=== PATIENT | female | born 1985 | race Caucasian/White ===

== ENCOUNTER 2021-03-05 23:35 | Emergency (ER) | payer OTHER, SELFPAY ==
[2021-03-05 23:57] VITALS: BP 120/103; PULSE 92; RESP 18; TEMP 36.8; O2SAT 98
--- NOTE | 2021-03-05 23:57 | ED.WOUNDLAC ---
HPI - Wound/Laceration General Chief Complaint: Wound/Laceration Stated Complaint: pointer finger (laceration) Time Seen by Provider: 03/05/21 23:57 Source: patient Mode of arrival: ambulatory Limitations: no limitations History of Present Illness HPI narrative: 35-year-old female presents to the ER with a J-shaped laceration of the left index finger on the palmar aspect. The laceration is a full-thickness laceration measuring 3 cm. She caught her finger on the edge of metal 10. Onset (ago): minute(s) ( 30 minutes) Location: other ( left 4th finger) Extremity Location: Left: hand Place: home Patient tetanus UTD: No Context: accidental Associated symptoms: none and pain Related Data Allergies Allergy/AdvReac Type Severity Reaction Status Date / Time No Known Allergies Allergy Unverified 05/20/13 15:29 Review of Systems Review of Systems: All systems reviewed & are unremarkable except as noted in HPI and below Constitutional: Constitutional: Reports as per HPI and Reports no additional constitutional complaints Eyes: Eyes: Reports as per HPI and Reports no additional eye complaints ENT: Reports system reviewed and no additional complaints, except as documented Cardiovascular: Cardiovascular: Reports as per HPI and Reports no additional cardiovascular complaints Respiratory: Respiratory: Reports as per HPI and Reports no additional respiratory complaints Gastrointestinal: Gastrointestinal: Reports as per HPI and Reports no additional gastrointestinal complaints Genitourinary: Genitourinary: Reports no additional female genitourinary complaints Musculoskeletal: Musculoskeletal: Reports no additional musculoskeletal complaints Integumentary/Breasts: Comments: left J shaped finger laceration Neurologic: Reports system reviewed and no additional complaints, except as documented and Reports other ( distal neurovascular bundle is intact.) Psychiatric: Psychiatric: Reports no additional psychiatric complaints Endocrine: Endocrine: Reports no additional endocrine complaints Hematologic/Lymphatic: Hematologic/Lymphatic: Reports no additional hematologic/lymphatic complaints Allergic/Immunologic: Allergic/Immunologic: Reports no additional allergic/immunologic complaints Exam Const: General: cooperative and healthy appearing HENMT: Head: normal to inspection Ears: hearing grossly normal bilaterally General nose exam: Normal external nose present Face and sinus: normal facial exam Mouth: Yes Normal oral and palatal mucosa present Throat: posterior oropharynx normal Eyes: General: appearance normal, both eyes and all related structures Neck: Neck: normal visual inspection Chest: Chest palpation & inspection: normal inspection of the chest Resp: Effort & Inspection: normal respiratory effort Auscultation: clear to auscultation bilaterally Cardio: Rate: regular rate Rhythm: regular rhythm Heart sounds: S1 normal heart sound present and S2 normal heart sound present GI: Inspection: normal to inspection Back/Spine/Pelvis: Back: no CVA tenderness Skin: Trauma: no lacerations or abrasions ( Left index finger distal phalanx/ Palmar aspect -3 cm lac) and other ( Profuse bleeding.) Neuro: General: oriented to person, oriented to place, oriented to time and patient oriented x3 Extrem: General: normal to inspection Left upper extremity: normal to inspection ( Left index finger laceration) Psych: Appearance: grossly normal Mental Status: mental status grossly normal Course Course Emergency Course: patient received tetanus and Rocephin injection Vital Signs Vital signs: Vital Signs Temperature 36.8 C 03/05/21 23:57 Pulse Rate 92 03/05/21 23:57 Respiratory Rate 18 03/05/21 23:57 Blood Pressure 120/103 H 03/05/21 23:57 Pulse Oximetry 98 03/05/21 23:57 Temperature 36.8 C 03/05/21 23:57 Pulse Rate 92 03/05/21 23:57 Respiratory Rate 18 03/05/21 23:57 Blood Pressure 120/10
--- NOTE | 2021-03-06 00:13 | PC.NURSE ---
Pt set up for suturing ERMD in at this time to suture.
--- NOTE | 2021-03-06 00:20 | PC.NURSE ---
23:45 Pt presents to ER with a 3 cm Flap Like laceration to the distal end of lt hand index finger.
[2021-03-06] MEDS: LIDOCAINE HCL 1% LOCAL INJ 20 ML VIAL (00:25)
[2021-03-06] MEDS: TETANUS,DIPHTHERIA,AC PERTUSSIS ADULT 0.5 ML (ADACEL) (01:14)
[2021-03-06 01:16] VITALS: BP 129/97; PULSE 97; RESP 20; TEMP 36.6; O2SAT 100
[2021-03-06] MEDS: NEOMYCIN/POLYMYXIN/BACITRACIN OINTMENT PACKET 1 PACKET (02:07)
[2021-03-06] MEDS: cefTRIAXone 1 GM VIAL IM (02:07)
--- NOTE | 2021-03-06 02:34 | PC.NURSE ---
0130; Pt tolerated Im Rocephin well. o S or S of adverse affect. 2X2 and cling dressing applied to Left hand index finger. bleeding completely controlled.
== END 2021-03-06 01:36 | disposition home or self-care (01) ==
PROVIDERS: Emergency Provider Internal Medicine Critical Care Medicine; PCP Internal Medicine
DX: S61.211A Laceration without foreign body of left index finger without damage to nail, initial encounter (principal); W45.8XXA Other foreign body or object entering through skin, initial encounter
CPT/HCPCS: 12002; 90471; 90715; 96372; 99283; J0696

== ENCOUNTER 2023-07-09 21:01 | Emergency (ER) | payer OTHER, SELFPAY ==
--- NOTE | ~2023-07-09 | XR_ITS ---
XR foot RT min 3V, XR ankle RT min 3V 07/09/2023 21:21 Indication: Right foot and ankle pain Procedure: 3 views right foot and 3 views right ankle Comparison: No prior studies for comparison. Findings: There is a mildly displaced comminuted fracture proximal aspect of the fifth metatarsal. No other fracture. Mild soft tissue swelling lateral to the fracture site. Ankle mortise intact. [place] nc joint intact. Impression: 1: Mildly displaced comminuted fracture proximal aspect of the right fifth metatarsal with intra-stalin cular extension. Reviewed, dictated and finalized at location A. Impression: 1: Mildly displaced comminuted fracture proximal aspect of the right fifth meta tarsal with intra-articular extension. Impression: 1: Mildly displaced comminuted fracture proximal aspect of the right fifth meta tarsal with intra-articular extension.
[2023-07-09 21:06] VITALS: BP 131/91; PULSE 108; RESP 18; TEMP 36.7; O2SAT 100
--- NOTE | 2023-07-09 21:08 | ED.LOWEXIN ---
HPI - Extremity Injury (Lower) General Chief Complaint: Extremity Injury, Upper Stated Complaint: R Foot Pain Time Seen by Provider: 07/09/23 21:04 Source: patient Mode of arrival: ambulatory Limitations: no limitations History of Present Illness HPI Narrative: this is a 38-year-old female that was working at home and slipped off her run on a ladder and twisted her right foot and ankle causing pain swelling and bruising no other injuries as a brisk pedal pulse with mild numbness secondary to inflammation. complaint: ankle injury and foot injury Onset (ago): hour(s) Type of Injury: inversion Place: home Severity: moderate Severity scale (1-10): 7 Relieving factors: NSAID Exacerbating factors: weight bearing and movement Context: other Related Data Allergies Allergy/AdvReac Type Severity Reaction Status Date / Time No Known Allergies Allergy Verified 07/09/23 21:04 Review of Systems Review of Systems: All systems reviewed & are unremarkable except as noted in HPI and below PMFSH Past Medical History Medical History Patient denies medical problems Exam Const: General: healthy appearing Nutritional Appearance: well nourished Orientation/consciousness: patient oriented x3 Limitations: no limitations Resp: Effort & Inspection: normal respiratory effort Auscultation: clear to auscultation bilaterally Cardio: Rate: regular rate Rhythm: regular rhythm GI: GI Palp: Yes Soft to palpation Auscultation: normal bowel sounds Extrem: Other: tender right foot and ankle to palpation and movement with bruising and some swelling. Course Course Emergency Course: Patient received a dose of 60mg IM Toradol and x-ray of the foot ankle performed and reviewed Shows a fracture of the right 5th metatarsal. Vital Signs Vital signs: Vital Signs Temperature 36.7 C 07/09/23 21:06 Pulse Rate 108 H 07/09/23 21:06 Respiratory Rate 18 07/09/23 21:06 Blood Pressure 131/91 H 07/09/23 21:06 Pulse Oximetry 100 07/09/23 21:06 Oxygen Delivery Room Air 07/09/23 21:06 Temperature 36.7 C 07/09/23 21:06 Pulse Rate 108 H 07/09/23 21:06 Respiratory Rate 18 07/09/23 21:06 Blood Pressure 131/91 H 07/09/23 21:06 Pulse Oximetry 100 07/09/23 21:06 Oxygen Delivery Room Air 07/09/23 21:06 Critical Care Time Critical Care Time Critical Care Time: No Discharge Plan Discharge Clinical Impression: Foot fracture, right Qualifiers: Encounter type: initial encounter Fracture type: closed Qualified Code(s): S92.901A - Unspecified fracture of right foot, initial encounter for closed fracture Patient Disposition: Home, Self-Care Condition: Stable Instructions: Antibiotic Form, Foot Fracture in Adults (ED) Additional Instructions: advised to ice, take medicine as prescribed continue with limited weight-bearing elevation when at rest and follow-up with primary for referral to Orthopedics. Prescriptions: New tramadol 50 mg tablet 50 mg PO Q6H PRN (Reason: pain) Qty: 20 0RF Follow-up/Referrals: Patrick,Mya Ruiz MD [Primary Care Provider] - Time of Disposition: 21:34
[2023-07-09] MEDS: KETOROLAC (*BKC) 60 MG/2 ML VIAL IM (21:48)
== END 2023-07-09 21:50 | disposition home or self-care (01) ==
PROVIDERS: Emergency Provider Emergency Medicine; PCP Internal Medicine
DX: S92.351A Displaced fracture of fifth metatarsal bone, right foot, initial encounter for closed fracture (principal); X50.0XXA Overexertion from strenuous movement or load, initial encounter
CPT/HCPCS: 73610; 73630; 96372; 99284; J1885